=== PATIENT | male | born 1980 | race African-American/Black ===

== ENCOUNTER → 2018-02-18 | Emergency (ER) | payer OTHER ==
[~2018-02-18] VITALS: Ht 182.9 cm; Wt 99.8 kg
[~2018-02-18] MED LIST: OLAN20TA13; PROZAC; QUET50TA; TRAZADONE; UNK HTN MED
[2018-02-18 00:39] VITALS: BP 129/93
== END | disposition left against medical advice (07) ==
LOC: ER 00:37
DX: T38.3X1A Poisoning by insulin and oral hypoglycemic [antidiabetic] drugs, accidental (unintentional), initial encounter (principal); Z53.21 Procedure and treatment not carried out due to patient leaving prior to being seen by health care provider; Y92.89 Other specified places as the place of occurrence of the external cause

== ENCOUNTER 2018-03-11 10:24 | Emergency (ER) | payer MEDICAID ==
[~2018-03-11] VITALS: Ht 182.9 cm; Wt 102.1 kg
[2018-03-11 11:10] LABS: Basophils # (auto) 0 uL; Basophils % (auto) 0.3 % (0.0-2.0); Eosinophils # (auto) 0 uL; Eosinophils % (auto) 0.4 % (0.0-7.0); Hematocrit 44.9 % (41.0-53.0); Hemoglobin 15.4 g/dL (13.5-17.5); Lymphocytes # (auto) 1.3 uL; Lymphocytes % (auto) 23.9 % (10.0-50.0); Mean Corpuscular Hemoglobin 28.3 pg (28.0-32.0); Mean Corpuscular Hgb Conc. 34.2 g/dL (32.0-36.0); Mean Corpuscular Volume 82.7 fL (80.0-100.0); Monocytes # (auto) 0.3 uL; Monocytes % (auto) 6.1 % (0.0-12.0); Neutrophils # (auto) 3.7 uL; Neutrophils % (auto) 69.3 % (37.0-80.0); Nucleated Red Blood Cells % 0.1 %; Platelet Count (auto) 272 10^3/uL (140-450); Red Blood Cells 5.43 10^6/uL (4.5-5.90); Red Cell Distribution Width 14.1 % (11.8-14.3); White Blood Cell 5.4 10^3/uL (4.4-10.8)
[2018-03-11 11:14] LABS: BUN/Creatinine Ratio 5.4; Bilirubin, Total 0.3 mg/dL (0.2-1.0); Calcium 8.8 mg/dL (8.5-10.1); Potassium 3.6 mmol/L (3.5-5.1); Total Protein 8.2 g/dL (6.4-8.2)
[2018-03-11 12:09] LABS: Acetaminophen < 2.0 ug/mL (10-30); Salicylate 5.1 mg/dL (2.8-20.0)
[2018-03-11 16:28] LABS: Amphetamine Screen, Urine NEGATIVE (NEGATIVE); Barbiturate Scree,Urine NEGATIVE (NEGATIVE); Benzodiazephine Screen, Urine NEGATIVE (NEGATIVE); Cannabinoid Screen, Urine POSITIVE (NEGATIVE); Cocaine Screen, Urine NEGATIVE (NEGATIVE); Opiate Scree,Urine NEGATIVE (NEGATIVE); Phencyclidine Screen, Urine NEGATIVE (NEGATIVE)
[2018-03-12 21:44] VITALS: BP 139/102
== END 2018-03-12 22:16 ==
LOC: ER 10:24
DX: R45.851 Suicidal ideations (principal); F12.10 Cannabis abuse, uncomplicated; F17.210 Nicotine dependence, cigarettes, uncomplicated; E11.9 Type 2 diabetes mellitus without complications; E78.5 Hyperlipidemia, unspecified; I10 Essential (primary) hypertension
CPT/HCPCS: 36415; 80053; 80307; 80320; 80329; 85025

== ENCOUNTER → 2018-10-10 | Emergency (ER) | payer MEDICAID ==
[~2018-10-10] VITALS: Ht 182.9 cm; Wt 99.8 kg
[~2018-10-10] MED LIST changes: +ALPRAZolam 0.5 MG TAB PO ONE; +LORazepam 0.5 MG TAB PO ONE; +PARoxetine 20 MG TAB ONE; +TEMAZEPAM 15 MG CAP PO ONE; +ZOLPIDEM TARTRATE 5 MG TAB PO ONE; +diphenhdrAMINE HCL 25 MG CAP PO ONE
[2018-10-10 20:05] LABS: Urine Bacteria NONE SEEN /hpf (None Seen); Urine Blood Negative /uL (Negative); Urine Specific Gravity 1.006 (1.001-1.035); Urine WBC <1 /hpf (0 - 3)
[2018-10-10 20:07] LABS: Basophils # (auto) 0 uL; Basophils % (auto) 0.1 % (0.0-2.0); Eosinophils # (auto) 0 uL; Eosinophils % (auto) 0.1 % (0.0-7.0); Hematocrit 44.1 % (41.0-53.0); Lymphocytes # (auto) 0.5 uL; Lymphocytes % (auto) 9.1 % (10.0-50.0); Mean Corpuscular Hemoglobin 32.4 pg (28.0-32.0); Mean Corpuscular Volume 95.2 fL (80.0-100.0); Monocytes # (auto) 0.4 uL; Monocytes % (auto) 7.2 % (0.0-12.0); Neutrophils # (auto) 4.3 uL; Neutrophils % (auto) 83.5 % (37.0-80.0); Platelet Count (auto) 171 10^3/uL (140-450); Red Blood Cells 4.63 10^6/uL (4.5-5.90); Red Cell Distribution Width 14.9 % (11.8-14.3); White Blood Cell 5.1 10^3/uL (4.4-10.8)
[2018-10-10 20:23] LABS: Albumin 3.9 g/dL (3.4-5.0); Anion Gap 8 (5-15); Blood Alcohol < 3.0 mg/dL (0-5); Blood Urea Nitrogen 6 mg/dL (7-18); Calcium 8.7 mg/dL (8.5-10.1); Carbon Dioxide 26 mmol/L (21-32); Chloride 100 mmol/L (98-107); Glucose 202 mg/dL (74-106); Potassium 3.6 mmol/L (3.5-5.1); Sodium 134 mmol/L (136-145)
[2018-10-10 20:23] LABS: Alcohol, Urine < 3.0 mg/dL (0-5); Amphetamine Screen, Urine NEGATIVE (NEGATIVE); Barbiturate Scree,Urine NEGATIVE (NEGATIVE); Benzodiazephine Screen, Urine NEGATIVE (NEGATIVE); Cannabinoid Screen, Urine POSITIVE (NEGATIVE); Cocaine Screen, Urine NEGATIVE (NEGATIVE); Opiate Scree,Urine NEGATIVE (NEGATIVE); Phencyclidine Screen, Urine NEGATIVE (NEGATIVE)
[2018-10-10 20:27] LABS: Alanine Aminotransferase 91 U/L (16-61); Alkaline Phosphatase 45 U/L (45-117); Aspartate Aminotransferase 144 U/L (15-37); BUN/Creatinine Ratio 5.2; Bilirubin, Total 0.5 mg/dL (0.2-1.0); GFR African American 92 mL/min; GFR Non-African American 76 mL/min; Total Protein 7.8 g/dL (6.4-8.2)
[2018-10-10 20:34] LABS: Acetaminophen < 2.0 ug/mL (10-30)
[2018-10-11] MEDS: LORazepam 0.5 MG TAB PO PRN ×3 (12:05→20:53)
[2018-10-11] MEDS: diphenhdrAMINE HCL 25 MG CAP PO SCH (20:53)
[2018-10-12] MEDS: diphenhdrAMINE HCL 25 MG CAP PO SCH ×2 (12:12→22:17)
[2018-10-12] MEDS: PARoxetine 20 MG TAB PO SCH (12:13)
[2018-10-12] MEDS: LORazepam 0.5 MG TAB PO PRN ×2 (16:28→22:17)
[2018-10-13] MEDS: LORazepam 0.5 MG TAB PO PRN (10:22)
[2018-10-13] MEDS: diphenhdrAMINE HCL 25 MG CAP PO SCH ×2 (10:22→21:20)
[2018-10-13] MEDS: PARoxetine 20 MG TAB PO SCH (13:17)
[2018-10-13] MEDS: metFORMIN HYDROCHLORIDE 500 MG TAB PO SCH (18:25)
[2018-10-14] MEDS: PARoxetine 20 MG TAB PO SCH (10:47)
[2018-10-14] MEDS: diphenhdrAMINE HCL 25 MG CAP PO SCH ×2 (10:47→21:37)
[2018-10-14] MEDS: metFORMIN HYDROCHLORIDE 500 MG TAB PO SCH ×2 (10:47→21:35)
[2018-10-14 19:47] VITALS: BP 132/90
[2018-10-14] MEDS: LORazepam 0.5 MG TAB PO PRN (23:24)
== END | disposition home or self-care (01) ==
LOC: ER 19:06
DX: F25.9 Schizoaffective disorder, unspecified (principal); R45.851 Suicidal ideations; E11.9 Type 2 diabetes mellitus without complications; E78.5 Hyperlipidemia, unspecified; I10 Essential (primary) hypertension; F17.210 Nicotine dependence, cigarettes, uncomplicated; F12.90 Cannabis use, unspecified, uncomplicated
CPT/HCPCS: 36415; 80053; 80307; 80320; 80329; 81001; 82962; 85025

== ENCOUNTER 2018-11-15 19:06 | Emergency (ER) | payer MEDICAID ==
[~2018-11-15] VITALS: Ht 182.9 cm; Wt 99.8 kg
[~2018-11-15 19:06] MED LIST changes: -ALPRAZolam 0.5 MG TAB PO ONE; -LORazepam 0.5 MG TAB PO ONE; -PARoxetine 20 MG TAB ONE; -TEMAZEPAM 15 MG CAP PO ONE; -ZOLPIDEM TARTRATE 5 MG TAB PO ONE; -diphenhdrAMINE HCL 25 MG CAP PO ONE
[2018-11-15 22:23] LABS: Basophils # (auto) 0 uL; Basophils % (auto) 0.2 % (0.0-2.0); Eosinophils # (auto) 0 uL; Eosinophils % (auto) 0.3 % (0.0-7.0); Hematocrit 45.5 % (41.0-53.0); Hemoglobin 15.6 g/dL (13.5-17.5); Lymphocytes # (auto) 2.1 uL; Lymphocytes % (auto) 33.6 % (10.0-50.0); Mean Corpuscular Hemoglobin 32.5 pg (28.0-32.0); Mean Corpuscular Hgb Conc. 34.3 g/dL (32.0-36.0); Mean Corpuscular Volume 94.7 fL (80.0-100.0); Monocytes # (auto) 0.5 uL; Monocytes % (auto) 7.8 % (0.0-12.0); Neutrophils # (auto) 3.7 uL; Neutrophils % (auto) 58.1 % (37.0-80.0); Nucleated Red Blood Cells % 0.1 %; Platelet Count (auto) 229 10^3/uL (140-450); Red Cell Distribution Width 14.8 % (11.8-14.3); White Blood Cell 6.3 10^3/uL (4.4-10.8)
[2018-11-15 22:38] LABS: Albumin 4.3 g/dL (3.4-5.0); BUN/Creatinine Ratio 2.7; Calcium 8.4 mg/dL (8.5-10.1); Potassium 3.9 mmol/L (3.5-5.1)
[2018-11-15 22:40] LABS: Salicylate 4.9 mg/dL (2.8-20.0)
[2018-11-15 22:41] LABS: Bilirubin, Total 0.5 mg/dL (0.2-1.0); Total Protein 8.3 g/dL (6.4-8.2)
[2018-11-15 22:44] LABS: Acetaminophen < 2.0 ug/mL (10-30)
[2018-11-15] MEDS ORDERED: SODIUM CHLORIDE 0.9% 1,000 ML IV ONE (23:00)
[2018-11-15] MEDS ORDERED: MULTIPLE VITAMIN 10 ML, MAGNESIUM SULF SDV 50% 8 MEQ in SODIUM CHLORIDE 0.9% 1,000 ML IV SCH (23:00)
[2018-11-15] MEDS ORDERED: MVI in SODIUM CHLORIDE 0.9% 1,010 ML ONE (23:20)
[2018-11-16 02:02] LABS: Amphetamine Screen, Urine NEGATIVE (NEGATIVE); Barbiturate Scree,Urine POSITIVE (NEGATIVE); Benzodiazephine Screen, Urine NEGATIVE (NEGATIVE); Cannabinoid Screen, Urine POSITIVE (NEGATIVE); Cocaine Screen, Urine NEGATIVE (NEGATIVE); Opiate Scree,Urine NEGATIVE (NEGATIVE); Phencyclidine Screen, Urine NEGATIVE (NEGATIVE)
[2018-11-16 02:11] LABS: Urine Amorphous Crystal FEW /hpf (None Seen); Urine Bacteria FEW /hpf (None Seen); Urine Blood Negative /uL (Negative); Urine Mucus FEW (None Seen); Urine Specific Gravity 1.009 (1.001-1.035); Urine WBC 1 /hpf (0 - 3)
[2018-11-17 06:45] VITALS: BP 142/98
== END 2018-11-17 07:07 | disposition short-term general hospital (02) ==
LOC: ER 19:30
DX: R45.851 Suicidal ideations (principal); F12.90 Cannabis use, unspecified, uncomplicated; F10.129 Alcohol abuse with intoxication, unspecified; E11.9 Type 2 diabetes mellitus without complications; E78.5 Hyperlipidemia, unspecified; I10 Essential (primary) hypertension; F20.9 Schizophrenia, unspecified; F17.210 Nicotine dependence, cigarettes, uncomplicated
CPT/HCPCS: 36415; 80053; 80307; 80320; 80329; 81001; 85025; 96365; 96366; 99285; J3411; J3475

== ENCOUNTER 2018-12-30 06:48 | Emergency (ER) | payer MEDICAID ==
[~2018-12-30] VITALS: Ht 182.9 cm; Wt 99.8 kg
[2018-12-30 07:46] LABS: Basophils # (auto) 0 uL; Basophils % (auto) 0.8 % (0.0-2.0); Eosinophils # (auto) 0 uL; Eosinophils % (auto) 0.2 % (0.0-7.0); Hematocrit 45.8 % (41.0-53.0); Hemoglobin 15.9 g/dL (13.5-17.5); Lymphocytes # (auto) 1.1 uL; Lymphocytes % (auto) 22.1 % (10.0-50.0); Mean Corpuscular Hemoglobin 31.6 pg (28.0-32.0); Mean Corpuscular Hgb Conc. 34.8 g/dL (32.0-36.0); Mean Corpuscular Volume 90.8 fL (80.0-100.0); Monocytes # (auto) 0.3 uL; Monocytes % (auto) 5.1 % (0.0-12.0); Neutrophils # (auto) 3.7 uL; Neutrophils % (auto) 71.8 % (37.0-80.0); Platelet Count (auto) 254 10^3/uL (140-450); Red Blood Cells 5.04 10^6/uL (4.5-5.90); Red Cell Distribution Width 12.9 % (11.8-14.3); White Blood Cell 5.1 10^3/uL (4.4-10.8)
[2018-12-30 07:52] LABS: Urine Bacteria NONE SEEN /hpf (None Seen); Urine Blood Negative /uL (Negative); Urine Specific Gravity 1.015 (1.001-1.035); Urine WBC 1 /hpf (0 - 3)
[2018-12-30 07:58] LABS: BUN/Creatinine Ratio 10.1; Calcium 8.6 mg/dL (8.5-10.1); Potassium 3.4 mmol/L (3.5-5.1)
[2018-12-30 08:00] LABS: Amphetamine Screen, Urine NEGATIVE (NEGATIVE); Barbiturate Scree,Urine NEGATIVE (NEGATIVE); Benzodiazephine Screen, Urine POSITIVE (NEGATIVE); Cannabinoid Screen, Urine POSITIVE (NEGATIVE); Cocaine Screen, Urine NEGATIVE (NEGATIVE); Opiate Scree,Urine NEGATIVE (NEGATIVE); Phencyclidine Screen, Urine NEGATIVE (NEGATIVE)
[2018-12-30 08:01] LABS: Bilirubin, Total 0.4 mg/dL (0.2-1.0)
[2018-12-30 08:04] LABS: Salicylate 6.9 mg/dL (2.8-20.0)
[2018-12-30 08:05] LABS: Acetaminophen < 2.0 ug/mL (10-30)
[2018-12-30 11:14] VITALS: BP 154/99
== END 2018-12-30 11:54 | disposition home or self-care (01) ==
LOC: ER 06:48
DX: F41.9 Anxiety disorder, unspecified (principal); E11.9 Type 2 diabetes mellitus without complications; I10 Essential (primary) hypertension; E78.5 Hyperlipidemia, unspecified; F17.210 Nicotine dependence, cigarettes, uncomplicated; F12.10 Cannabis abuse, uncomplicated
CPT/HCPCS: 36415; 80053; 80307; 80320; 80329; 81001; 85025

== ENCOUNTER 2018-12-31 14:25 | Emergency (ER) | payer MEDICAID ==
[~2018-12-31] VITALS: Ht 182.9 cm; Wt 99.8 kg
[2018-12-31 14:34] VITALS: BP 135/93
== END 2018-12-31 16:17 | disposition home or self-care (01) ==
LOC: ER 14:28
DX: G47.00 Insomnia, unspecified (principal); Z76.0 Encounter for issue of repeat prescription; E11.9 Type 2 diabetes mellitus without complications; E78.00 Pure hypercholesterolemia, unspecified; I10 Essential (primary) hypertension; F17.210 Nicotine dependence, cigarettes, uncomplicated; F12.10 Cannabis abuse, uncomplicated; Z79.899 Other long term (current) drug therapy

== ENCOUNTER 2019-01-30 16:44 | Emergency (ER) | payer MEDICAID ==
[~2019-01-30] VITALS: Ht 182.9 cm; Wt 99.8 kg
[2019-01-30 16:45] VITALS: BP 125/96
[2019-01-30 17:37] LABS: Basophils # (auto) 0 uL; Basophils % (auto) 0.4 % (0.0-2.0); Eosinophils # (auto) 0 uL; Hematocrit 46.6 % (41.0-53.0); Lymphocytes % (auto) 12.4 % (10.0-50.0); Mean Corpuscular Hemoglobin 30.2 pg (28.0-32.0); Mean Corpuscular Hgb Conc. 34.3 g/dL (32.0-36.0); Mean Corpuscular Volume 87.9 fL (80.0-100.0); Monocytes # (auto) 0.6 uL; Monocytes % (auto) 6.7 % (0.0-12.0); Neutrophils # (auto) 6.7 uL; Neutrophils % (auto) 80.5 % (37.0-80.0); Nucleated Red Blood Cells % 0.1 %; Platelet Count (auto) 258 10^3/uL (140-450); Red Blood Cells 5.29 10^6/uL (4.5-5.90); White Blood Cell 8.4 10^3/uL (4.4-10.8)
[2019-01-30 17:49] LABS: Albumin 4.5 g/dL (3.4-5.0); Calcium 9.1 mg/dL (8.5-10.1); Potassium 3.5 mmol/L (3.5-5.1)
[2019-01-30 17:53] LABS: BUN/Creatinine Ratio 3.8; Bilirubin, Total 0.4 mg/dL (0.2-1.0); Total Protein 8.6 g/dL (6.4-8.2)
== END 2019-01-30 23:20 | disposition left against medical advice (07) ==
LOC: EDUNIT# 16:44 → EDBD 16:44 → ER 16:46
DX: F41.9 Anxiety disorder, unspecified (principal); Z53.21 Procedure and treatment not carried out due to patient leaving prior to being seen by health care provider
CPT/HCPCS: 36415; 80053; 85025

== ENCOUNTER 2024-03-28 15:14 | Emergency (ER) | payer MEDICAID ==
[~2024-03-28] VITALS: Ht 182.9 cm; Wt 107.7 kg
[~2024-03-28 15:14] MED LIST changes: +OLAN20TA; -OLAN20TA13
[2024-03-28 16:44] VITALS: BP 121/78; PULSE 119; RESP 18; TEMP 98.5; O2SAT 96
[2024-03-28] MEDS ORDERED: PROM1SOL4 PO (17:00)
[2024-03-28] MEDS ORDERED: PRED20TA2 PO (17:00)
[2024-03-28] MEDS ORDERED: CEPH500C PO (17:00)
== END 2024-03-28 17:15 | disposition home or self-care (01) ==
LOC: ER 15:14
DX: J20.9 Acute bronchitis, unspecified (principal); J03.90 Acute tonsillitis, unspecified; I10 Essential (primary) hypertension; E11.9 Type 2 diabetes mellitus without complications; E78.5 Hyperlipidemia, unspecified; F41.9 Anxiety disorder, unspecified; F20.9 Schizophrenia, unspecified; F17.210 Nicotine dependence, cigarettes, uncomplicated; F15.90 Other stimulant use, unspecified, uncomplicated
CPT/HCPCS: 71046

== ENCOUNTER 2024-04-22 14:40 | Emergency (ER) | payer MEDICAID ==
[~2024-04-22] VITALS: Ht 182.9 cm; Wt 104.0 kg
[~2024-04-22 14:40] MED LIST changes: +CEPH500C PO; +PRED20TA2 PO; +PROM1SOL4 PO
[2024-04-22 15:52] VITALS: BP 151/88; PULSE 107; RESP 17; TEMP 97.9; O2SAT 98
[2024-04-22] MEDS ORDERED: PROM1SOL4 PO (16:05)
[2024-04-22] MEDS ORDERED: AZIT-74 PO (16:05)
[2024-04-22] MEDS ORDERED: PROM2SYP2 PO (16:05)
== END 2024-04-22 16:10 | disposition home or self-care (01) ==
LOC: ER 14:46
DX: J20.9 Acute bronchitis, unspecified (principal); I10 Essential (primary) hypertension; E11.9 Type 2 diabetes mellitus without complications; E78.5 Hyperlipidemia, unspecified; F41.9 Anxiety disorder, unspecified; F20.9 Schizophrenia, unspecified; F17.210 Nicotine dependence, cigarettes, uncomplicated; F15.90 Other stimulant use, unspecified, uncomplicated

== ENCOUNTER 2024-05-02 15:44 | Emergency (ER) | payer MEDICAID ==
[~2024-05-02] VITALS: Ht 182.9 cm; Wt 102.6 kg
[~2024-05-02 15:44] MED LIST changes: +AZIT-74 PO; +PROM2SYP2 PO
[2024-05-02 15:57] VITALS: BP 109/64; PULSE 78; RESP 17; O2SAT 95
== END 2024-05-02 16:21 | disposition left against medical advice (07) ==
LOC: ER 15:44
DX: R05.9 Cough, unspecified (principal); R19.7 Diarrhea, unspecified; Z53.21 Procedure and treatment not carried out due to patient leaving prior to being seen by health care provider

== ENCOUNTER 2024-05-02 17:19 | Emergency (ER) | payer MEDICAID | END 2024-05-02 18:49 | disposition left against medical advice (07) | LOC: ER 17:19 | DX: J02.9 Acute pharyngitis, unspecified (principal); Z53.21 Procedure and treatment not carried out due to patient leaving prior to being seen by health care provider ==

== ENCOUNTER 2024-06-16 07:53 | Emergency (ER) | payer MEDICAID ==
[~2024-06-16] VITALS: Ht 182.9 cm; Wt 105.7 kg
[2024-06-16 08:13] VITALS: BP 136/97; PULSE 106; RESP 18; TEMP 98.6; O2SAT 98
[2024-06-16 10:11] LABS: COVID19 ANTIGEN SOFIA FIA NEGATIVE (NEGATIVE); Rapid Influenza A Negative (Negative); Rapid Influenza B Negative (Negative)
[2024-06-16 11:44] LABS: Urine Bacteria None Seen /hpf (None Seen)
[2024-06-16 11:47] LABS: Urine Blood Negative /uL (Negative); Urine Clarity Clear (Clear); Urine Color Light-Yellow (Yellow); Urine Protein, UAD Negative (Negative); Urine Specific Gravity 1.007 (1.001-1.035); Urine Urobilinogen Normal (Negative); Urine WBC <1 /hpf (0 - 3); Urine pH 5.5 (5.0-9.0)
[2024-06-16] MEDS ORDERED: GUAI-41 PO (11:55)
[2024-06-16] MEDS ORDERED: IBUP-1454 PO (11:55)
[2024-06-16] MEDS ORDERED: AUG875T PO (11:55)
[2024-06-16] MEDS ORDERED: PROM1SOL4 PO (11:55)
== END 2024-06-16 12:04 | disposition home or self-care (01) ==
LOC: ER 07:53
DX: B34.9 Viral infection, unspecified (principal); E11.9 Type 2 diabetes mellitus without complications; E78.5 Hyperlipidemia, unspecified; I10 Essential (primary) hypertension; F17.210 Nicotine dependence, cigarettes, uncomplicated; F12.10 Cannabis abuse, uncomplicated; Z20.822 Contact with and (suspected) exposure to COVID-19
CPT/HCPCS: 36415; 81001; 87426; 87804

== ENCOUNTER 2024-08-28 13:58 | Emergency (ER) | payer MEDICAID ==
[~2024-08-28] VITALS: Ht 182.9 cm; Wt 120.0 kg
[~2024-08-28 13:58] MED LIST changes: +AUG875T PO; +GUAI-41 PO; +IBUP-1454 PO
[2024-08-28] MEDS: MORPHINE SULFATE 4 MG/ML SYR/VIAL IV ONE (14:15)
[2024-08-28] MEDS: ONDANSETRON HCL 4 MG/2 ML VIAL IV ONE (14:15)
--- NOTE | 2024-08-28 14:19 | ED.PDOC ---
History of Present Illness HPI Comments 43 year old male JASS presents to the ED after being DC this morning with a chief complaint of ABD pain. EMS reports that patient was initially seen for FLU like symptoms and was AxO4 along with ABD pain however, upon arrival to ED patient no longer complains about ABD pain but instead now has N/V/D. Patient is slow to respond when questioned and states "he feels sick". EMS reports patients blood glucose read 374 on glucometer and has a BP of 146/104. Patient denies ABD pain, SOB, cough, fever, and chills. Time Seen by MD: 14:06 Primary Care Provider: [facility] Reviewed Notes: Nurses Notes, Fiber Technologist Notes, Medications, Allergies Allergies: Coded Allergies: NO KNOWN ALLERGIES (Unverified , 10/26/10) Home Meds Active Scripts Loperamide Hcl (Imodium) 2 Mg Cp, 2 MG PO Q4HP PRN for 7 Days, #20 CAP Prov:ORACIO LOCKE MD 08/28/24 Ondansetron HCl (Ondansetron Hydrochloride) 8 Mg Tab, 8 MG PO Q6HP PRN for 10 Days, #40 TAB Prov:ORACIO LOCKE MD 08/28/24 Guaifenesin (Guaifenesin) 100 Mg/5 Ml Harper, 100 MG PO TIDP PRN for 10 Days, #150 ML 0 Refills Prov:LYNETTE JIMENEZ NP 06/16/24 Ibuprofen (Ibuprofen) 600 Mg Tab, 1 TAB PO TID for 10 Days, #30 TAB 0 Refills Prov:LYNETTE JIMENEZ NP 06/16/24 Amoxicillin & Pot Clavulanate (AUGMENTIN TABLET) 875 Mg Tb, 875 MG PO BID for 7 Days, #14 TAB 0 Refills Prov:LYNETTE JIMENEZ NP 06/16/24 Promethazine-Dm (Promethazine Dm 6.25-15 mg/5Ml) 1 Harper Harper, 5 ML PO TIDP PRN for 10 Days, #150 ML 0 Refills Prov:LYNETTE JIMENEZ NP 06/16/24 Promethazine-Dm (Promethazine Dm 6.25-15 mg/5Ml) 1 Harper Harper, 5 ML PO TID PRN, #240 ML Prov:NABIL TATE 7/22/24 Azithromycin (Zithromax) 250 Mg Tab, 250 MG PO DAILY, #6 TAB Prov:NABIL TATE MANAGER DIESEL 04/22/24 Promethazine-Dm (Promethazine Dm 6.25-15 mg/5Ml) 1 Harper Harper, 5 ML PO TID, #180 ML Prov:LIZA WARNER 03/28/24 Prednisone (Prednisone) 20 Mg Tab, 60 MG PO DAILY, #15 MG Prov:LIZA WARNER 03/28/24 Cephalexin Monohydrate (Cephalexin) 500 Mg Cap, 1 CAP PO QID, #40 CAP Prov:LIZA WARNER 03/28/24 Reported Medications Promethazine W/Codeine (Promethazine/Codeine) 1 Syp Syp, 1 SYP PO BID PRN, #100 SYP 04/22/24 [Unk Htn Med] No Conflict Check 10/25/10 [Prozac] No Conflict Check, 20 DAILY 10/25/10 Quetiapine Fumerate (Seroquel) 50 Mg Tab, TID 10/25/10 Olanzapine (Zyprexa) 20 Mg Tab, DAILY 10/25/10 [Trazadone] No Conflict Check, 20 MG DAILY 10/25/10 Information Source: Patient, Emergency Med Personnel Mode of Arrival: EMS Severity: Moderate Timing: Hours Duration: Since onset Prehospital treatment: None Past Medical History PAST MEDICAL HISTORY: Anxiety, DM, High Lipids, HTN, Schizophrenia Surgical History: Denies all surgeries Family History Family History: Reviewed,noncontributory to illness Social History Smoker: Cigarettes Alcohol: Occasionally Drugs: Marijuana Lives In: Home, Other (DETENTION) Constitutional: denies: chills, diaphoresis, fatigue, fever, malaise, sweats, weakness, others EENTM: denies: blurred vision, double vision, ear bleeding, ear discharge, ear drainage, ear pain, ear ringing, eye pain, eye redness, hearing loss, mouth pain, mouth swelling, nasal discharge, nose bleeding, nose congestion, nose pain, photophobia, tearing, throat pain, throat swelling, voice changes, others Respiratory: denies: cough, hemoptysis, orthopnea, SOB at rest, shortness of breath, SOB with excertion, stridor, wheezing, others Cardiovascular: denies: chest pain, dizzy spells, diaphoresis, Dyspnea on exertion, edema, irregular heart beat, left arm pain, lightheadedness, palpitations, PND, syncope, others Gastrointestinal: reports: abdominal pain, diarrhea, nausea; denies: abdomen distended, blood streaked bowels, constipated, dysphagia, difficulty swallowing, hematemesis, melena, poor appetite, poor fluid intake, rectal bleeding, rectal pain, vomiting, others Genitourinary: denies: burning, dysuria, flank pain, frequency, hematuria, incontinence, penile discharge, penile sore, pain, testicle pain, testicle swelling, urgency, others Neurological: denies: dizziness, fainting, headache, left sided numbness, left sided weakness, numbness, paresthesia, pre-existing deficit, right sided numbness, right sided weakness, seizure, speech problems, tingling, tremors, weakness, others Musculoskeletal: denies: back pain, gout, joint pain, joint swelling, muscle pain, muscle stiffness, neck pain, others Integumetry: denies: bruises, change in color, change in hair/nails, dryness, laceration, lesions, lumps, rash, wounds, others Allergic/Immunocompromised: denies: Difficulty Healing, Frequent Infections, Hives, Itching, others Hematologic/Lymphatic: denies: anemia, blood clots, easy bleeding, easy bruising, swollen glands, others Endocrine: denies: excessive hunger, excessive sweating, excessive thirst, excessive urination, flushing, intolerance to cold, intolerance to heat, unexplained weight gain, unexplained weight loss, others Psychiatric: denies: anxiety, bipolar disorder, depression, hopeless, panic disorder, schizophrenia, sleepless, suicidal, others All Other Systems: Reviewed and Negative Physical Exam General Appearance: Mild Distress, Normal, Other (FLAT AFFECT) HEENT: Normal ENT Inspection, Pharynx Normal, TMs Normal Neck: Full Range of Motion, Non-Tender, Normal, Normal Inspection Respiratory: Chest Non-Tender, Lungs Clear, No Accessory Muscle Use, No Respiratory Distress, Normal Breath Sounds Cardiovascular: No Edema, No JVD, No Murmur, No Gallop, Normal Peripheral Pulses, Regular Rate/Rhythm Breast Exam: Deferred Gastrointestinal: No Organomegaly, Non Tender, No Pulsatile Mass, Normal Bowel Sounds, Soft Genitalia: Deferred Pelvic: Deferred Rectal: Deferred Extremities: No calf tenderness, Normal capillary refill, Normal inspection, Normal range of motion, Non-tender, No pedal edema Musculoskeletal : Apperance: Normal Neurologic: Alert, 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 Was a procedure done?: No Differential Dx Considerations may include: gastritis, gastroenteritis, dehydration, electrolyte abnormality, bowel obstruction, volvulus and others X-Ray, Labs, Meds, VS Vital Signs Date Time Temp Pulse Resp B/P (MAP) Pulse Ox O2 Delivery O2 Flow Rate FiO2 08/28/24 15:04 87 18 97 Room Air 08/28/24 15:04 87 18 144/94 (111) 98 08/28/24 14:17 99.0 105 18 164/108 (126) 95 146/104 (118) Lab Test 08/28/24 16:05 08/28/24 14:22 Range/Units POC Glucose 200 H 70-106 mg/dl White Blood Count 7.8 4.4-10.8 10^3/uL Red Blood Count 5.40 4.5-5.90 10^6/uL Hemoglobin 16.5 13.5-17.5 g/dL Hematocrit 47.4 41.0-53.0 % Mean Corpuscular Volume 87.8 80.0-100.0 fL Mean Corpuscular Hemoglobin 30.6 28.0-32.0 pg Mean Corpuscular Hemoglobin Concent 34.8 32.0-36.0 g/dL Red Cell Distribution Width 14.7 H 11.8-14.3 % Platelet Count 270 140-450 10^3/uL Mean Platelet Volume 7.4 6.9-10.8 fL Neutrophils (%) (Auto) 75.2 37.0-80.0 % Lymphocytes (%) (Auto) 16.7 10.0-50.0 % Monocytes (%) (Auto) 7.4 0.0-12.0 % Eosinophils (%) (Auto) 0.4 0.0-7.0 % Basophils (%) (Auto) 0.3 0.0-2.0 % Neutrophils # (Auto) 5.8 1.6-8.6 10 ^3/uL Lymphocytes # (Auto) 1.3 0.4-5.4 10 ^3/uL Monocytes # (Auto) 0.6 0-1.3 10 ^3/uL Eosinophils # (Auto) 0 0-0.8 10 ^3/uL Basophils # (Auto) 0 0-0.2 10 ^3/uL Nucleated Red Blood Cells 0.1 % Sodium Level 138 136-145 mmol/L Potassium Level 3.8 3.5-5.1 mmol/L Chloride Level 106 98-107 mmol/L Carbon Dioxide Level 22 20-31 mmol/L Anion Gap 10 5-15 Blood Urea Nitrogen 9 9-23 mg/dL Creatinine 0.97 0.700-1.30 mg/dL Glomerular Filtration Rate Calc 99 >90 mL/min BUN/Creatinine Ratio 9.3 L 10.0-20.0 Serum Glucose 255 H 74-106 mg/dL Calcium Level 10.4 8.7-10.4 mg/dL Total Bilirubin 0.5 0.2-1.0 mg/dL Aspartate Amino Transferase (AST) 18 13-40 U/L Alanine Aminotransferase (ALT) 15 7-40 U/L Alkaline Phosphatase 85 46-116 U/L Total Protein 8.6 H 5.7-8.2 g/dL Albumin 5.4 H 3.2-4.8 g/dL Lipase 45 12-53 U/L Current Medications Medications (Trade) Dose Ordered Sig/Mariela Route Start Time Stop Time Status Last Admin Sodium Chloride 1,000 ml @ 1,000 mls/hr Q1H ONCE IVB 08/28/24 14:15 08/28/24 15:14 DC 08/28/24 14:33 Loperamide HCl (Imodium Capsule) 4 mg ONCE ONCE PO 08/28/24 14:15 08/28/24 14:16 DC 08/28/24 15:07 Time of 1ST Reevaluation: 15:06 Reevaluation 1ST: Unchanged Time of 2ND Reevaluation: 16:00 Reevaluation 2ND: Improved Patient Education/Counseling: Diagnosis, Treatment Family Education/Counseling: No Family Present Departure 1 Departure Time of Disposition: 16:00 Impression: Primary Impression: Nausea vomiting and diarrhea Disposition: 01 HOME / SELF CARE / HOMELESS Condition: Stable e-Prescriptions Loperamide Hcl (Imodium) 2 Mg Cp 2 MG PO Q4HP PRN for 7 Days, #20 CAP Prov: ORACIO LOCKE MD 08/28/24 Ondansetron HCl (Ondansetron Hydrochloride) 8 Mg Tab 8 MG PO Q6HP PRN for 10 Days, #40 TAB Prov: ORACIO LOCKE MD 08/28/24 Discharged With: Self Critical Care Note Critical Care Time?: No Stability Stability form required: No Heart Score Heart Score: Heart Score Response (Comments) Value History N/A 0 EKG N/A 0 Age N/A 0 Risk Factors N/A 0 Troponin N/A 0 Total 0 I personally scribed for ORACIO LOCKE MD ([email or web address]) on 08/28/24 at 14:19. Electronically submitted by Penny Larios [email or web address]). ORACIO LOCKE MD Aug 28, 2024 14:19
[2024-08-28] MEDS: SODIUM CHLORIDE 0.9% 1,000 ML IVB ONE (14:33)
[2024-08-28 14:36] LABS: Basophils # (auto) 0 10 ^3/uL (0-0.2); Basophils % (auto) 0.3 % (0.0-2.0); Eosinophils # (auto) 0 10 ^3/uL (0-0.8); Eosinophils % (auto) 0.4 % (0.0-7.0); Hematocrit 47.4 % (41.0-53.0); Hemoglobin 16.5 g/dL (13.5-17.5); Lymphocytes # (auto) 1.3 10 ^3/uL (0.4-5.4); Lymphocytes % (auto) 16.7 % (10.0-50.0); Mean Corpuscular Hemoglobin 30.6 pg (28.0-32.0); Mean Corpuscular Hgb Conc. 34.8 g/dL (32.0-36.0); Mean Corpuscular Volume 87.8 fL (80.0-100.0); Monocytes # (auto) 0.6 10 ^3/uL (0-1.3); Monocytes % (auto) 7.4 % (0.0-12.0); Neutrophils # (auto) 5.8 10 ^3/uL (1.6-8.6); Neutrophils % (auto) 75.2 % (37.0-80.0); Nucleated Red Blood Cells % 0.1 %; Platelet Count (auto) 270 10^3/uL (140-450); Red Cell Distribution Width 14.7 % (11.8-14.3); White Blood Cell 7.8 10^3/uL (4.4-10.8)
[2024-08-28 14:52] LABS: Alanine Aminotransferase 15 U/L (7-40); Alkaline Phosphatase 85 U/L (46-116); Anion Gap 10 (5-15); Aspartate Aminotransferase 18 U/L (13-40); BUN/Creatinine Ratio 9.3 (10.0-20.0); Bilirubin, Total 0.5 mg/dL (0.2-1.0); Carbon Dioxide 22 mmol/L (20-31); Chloride 106 mmol/L (98-107); Lipase 45 U/L (12-53); Potassium 3.8 mmol/L (3.5-5.1); Sodium 138 mmol/L (136-145)
[2024-08-28 14:54] LABS: Albumin 5.4 g/dL (3.2-4.8); Blood Urea Nitrogen 9 mg/dL (9-23); Calcium 10.4 mg/dL (8.7-10.4); Glucose 255 mg/dL (74-106); Total Protein 8.6 g/dL (5.7-8.2)
[2024-08-28] MEDS ORDERED: ONDA-180 PO (15:05)
[2024-08-28] MEDS ORDERED: LOPE2CAP16 PO (15:05)
[2024-08-28] MEDS: LOPERAMIDE HCL 2 MG CAP/TAB PO ONE (15:07)
[2024-08-28 20:57] VITALS: BP 147/94; PULSE 75; RESP 14; TEMP 98.1; O2SAT 96
== END 2024-08-29 02:05 | disposition home or self-care (01) ==
LOC: ER 13:58 → EDUNIT# 13:58 → EDBD 13:58 → ER 08-29 02:05
DX: R11.2 Nausea with vomiting, unspecified (principal); R19.7 Diarrhea, unspecified; R10.9 Unspecified abdominal pain; I10 Essential (primary) hypertension; E11.9 Type 2 diabetes mellitus without complications; F17.210 Nicotine dependence, cigarettes, uncomplicated; F20.9 Schizophrenia, unspecified; F41.9 Anxiety disorder, unspecified
CPT/HCPCS: 36415; 80053; 82962; 83690; 85025; 96360; 96361; 99283; J7030

== ENCOUNTER 2024-12-10 13:58 | Emergency (ER) | payer MEDICAID ==
[~2024-12-10] VITALS: Ht 182.9 cm; Wt 100.2 kg
[~2024-12-10 13:58] MED LIST changes: +LOPE2CAP16 PO; +ONDA-180 PO
[2024-12-10] MEDS ORDERED: IBUP-1455 PO (16:48)
[2024-12-10] MEDS ORDERED: AUG875T PO (16:48)
--- NOTE | 2024-12-10 16:48 | ED.PDOC ---
History of Present Illness HPI Comments Patient complaining of a bite to his left medial thigh which happened yesterday. States he has been by laboratory. States the area is painful to the touch. Nothing makes it better, touching the area makes it worse. No fever no chills. Chief Complaint: Animal Bite Time Seen by MD: 15:56 Primary Care Provider: ? Reviewed Notes: Nurses Notes Allergies: Coded Allergies: NO KNOWN ALLERGIES (Unverified , 10/26/10) Home Meds Active Scripts Loperamide Hcl (Imodium) 2 Mg Cp, 2 MG PO Q4HP PRN for 7 Days, #20 CAP Prov:ORACIO LOCKE MD 08/28/24 Ondansetron HCl (Ondansetron Hydrochloride) 8 Mg Tab, 8 MG PO Q6HP PRN for 10 Days, #40 TAB Prov:ORACIO LOCKE MD 08/28/24 Guaifenesin (Guaifenesin) 100 Mg/5 Ml Harper, 100 MG PO TIDP PRN for 10 Days, #150 ML 0 Refills Prov:LYNETTE JIMENEZ NP 06/16/24 Ibuprofen (Ibuprofen) 600 Mg Tab, 1 TAB PO TID for 10 Days, #30 TAB 0 Refills Prov:LYNETTE JIMENEZ NP 06/16/24 Amoxicillin & Pot Clavulanate (AUGMENTIN TABLET) 875 Mg Tb, 875 MG PO BID for 7 Days, #14 TAB 0 Refills Prov:LYNETTE JIMENEZ NP 06/16/24 Promethazine-Dm (Promethazine Dm 6.25-15 mg/5Ml) 1 Harper Harper, 5 ML PO TIDP PRN for 10 Days, #150 ML 0 Refills Prov:LYNETTE JIMENEZ NP 06/16/24 Promethazine-Dm (Promethazine Dm 6.25-15 mg/5Ml) 1 Harper Harper, 5 ML PO TID PRN, #240 ML Prov:NABIL TATE 04/22/24 Azithromycin (Zithromax) 250 Mg Tab, 250 MG PO DAILY, #6 TAB Prov:NABIL TATE 04/22/24 Promethazine-Dm (Promethazine Dm 6.25-15 mg/5Ml) 1 Harper Harper, 5 ML PO TID, #180 ML Prov:LIZA WARNER 03/28/24 Prednisone (Prednisone) 20 Mg Tab, 60 MG PO DAILY, #15 MG Prov:LIZA WARNER MAURI 03/28/24 Cephalexin Monohydrate (Cephalexin) 500 Mg Cap, 1 CAP PO QID, #40 CAP Prov:LIZA WARNER MAURI 03/28/24 Reported Medications Promethazine W/Codeine (Promethazine/Codeine) 1 Syp Syp, 1 SYP PO BID PRN, #100 SYP 04/22/24 [Unk Htn Med] No Conflict Check 10/25/10 [Prozac] No Conflict Check, 20 DAILY 10/25/10 Quetiapine Fumerate (Seroquel) 50 Mg Tab, TID 10/25/10 Olanzapine (Zyprexa) 20 Mg Tab, DAILY 10/25/10 [Trazadone] No Conflict Check, 20 MG DAILY 10/25/10 Information Source: Patient Mode of Arrival: Ambulatory Past Medical History PAST MEDICAL HISTORY: Anxiety, DM, High Lipids, HTN, Schizophrenia Surgical History: Denies all surgeries Family History Family History: Reviewed,noncontributory to illness Social History Smoker: Cigarettes Alcohol: Occasionally Drugs: Marijuana Lives In: Home, Other Constitutional: denies: chills, diaphoresis, fatigue, fever, malaise, sweats, weakness, others EENTM: denies: blurred vision, double vision, ear bleeding, ear discharge, ear drainage, ear pain, ear ringing, eye pain, eye redness, hearing loss, mouth pain, mouth swelling, nasal discharge, nose bleeding, nose congestion, nose pain, photophobia, tearing, throat pain, throat swelling, voice changes, others Respiratory: denies: cough, hemoptysis, orthopnea, SOB at rest, shortness of breath, SOB with excertion, stridor, wheezing, others Cardiovascular: denies: chest pain, dizzy spells, diaphoresis, Dyspnea on exertion, edema, irregular heart beat, left arm pain, lightheadedness, palpitations, PND, syncope, others Gastrointestinal: denies: abdomen distended, abdominal pain, blood streaked bowels, constipated, diarrhea, dysphagia, difficulty swallowing, hematemesis, melena, nausea, poor appetite, poor fluid intake, rectal bleeding, rectal pain, vomiting, others Genitourinary: denies: burning, dysuria, flank pain, frequency, hematuria, incontinence, penile discharge, penile sore, pain, testicle pain, testicle swelling, urgency, others Neurological: denies: dizziness, fainting, headache, left sided numbness, left sided weakness, numbness, paresthesia, pre-existing deficit, right sided numbness, right sided weakness, seizure, speech problems, tingling, tremors, weakness, others Musculoskeletal: denies: back pain, gout, joint pain, joint swelling, muscle pain, muscle stiffness, neck pain, others Integumetry: reports: wounds; denies: bruises, change in color, change in hair/nails, dryness, laceration, lesions, lumps, rash, others Allergic/Immunocompromised: denies: Difficulty Healing, Frequent Infections, Hives, Itching, others Hematologic/Lymphatic: denies: anemia, blood clots, easy bleeding, easy bruising, swollen glands, others Endocrine: denies: excessive hunger, excessive sweating, excessive thirst, excessive urination, flushing, intolerance to cold, intolerance to heat, unexplained weight gain, unexplained weight loss, others Psychiatric: denies: anxiety, bipolar disorder, depression, hopeless, panic disorder, schizophrenia, sleepless, suicidal, others Physical Exam General Appearance: No Apparent Distress, Normal HEENT: Normal ENT Inspection, Pharynx Normal, TMs Normal Neck: Full Range of Motion, Non-Tender, Normal, Normal Inspection Respiratory: Chest Non-Tender, Lungs Clear, No Accessory Muscle Use, No Respiratory Distress, Normal Breath Sounds Cardiovascular: No Edema, No JVD, No Murmur, No Gallop, Normal Peripheral Pulses, Regular Rate/Rhythm Breast Exam: Deferred Gastrointestinal: No Organomegaly, Non Tender, No Pulsatile Mass, Normal Bowel Sounds, Soft Genitalia: Deferred Pelvic: Deferred Rectal: Deferred Extremities: No calf tenderness, Normal capillary refill, Normal inspection, Normal range of motion, Non-tender, No pedal edema Musculoskeletal : Apperance: Normal Neurologic: Alert, 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 Areas warm to the touch. No discharge.) Lymphatic: No Adenopathy Was a procedure done? Was a procedure done?: No Differential Dx Considerations may include: Animal bite, cellulitis X-Ray, Labs, Meds, VS Vital Signs Date Time Temp Pulse Resp B/P (MAP) Pulse Ox O2 Delivery O2 Flow Rate FiO2 12/10/24 14:24 97.6 107 22 139/85 (103) 97 X-Ray, Labs, Meds, VS Comment Imaging: X-rays and CT scans were reviewed and interpreted by this provider, imaging shows no fractures and no pathological disease. Pending radiology review. Laboratory: Labs reviewed and interpreted by this provider. No significant abnormalities noted. Patient has prior medical visits reviewed. Med reconciliation performed Vital signs reviewed Time of 1ST Reevaluation: 16:48 Reevaluation 1ST: Improved Patient Education/Counseling: Diagnosis, Treatment, Need For Follow Up (Patient advised to follow-up in the emergency room in the next 24 to 48 hours if symptoms do not improve. Advised follow-up with PCP in the next 3 to 5 days. Patient verbalized understanding. ) Family Education/Counseling: Diagnosis, Treatment Departure 1 Departure Time of Disposition: 16:44 Impression: Primary Impression: Animal bite Disposition: 01 HOME / SELF CARE / HOMELESS Condition: Fair e-Prescriptions Ibuprofen Micronized (Ibuprofen) 800 Mg Tab 800 MG PO TID PRN, #40 TAB Prov: NABIL TATE 12/10/24 Amoxicillin & Pot Clavulanate (AUGMENTIN TABLET) 875 Mg Tb 875 MG PO BID for 7 Days, #14 TAB Prov: NABIL TATE 12/10/24 Discharged With: Self Critical Care Note Critical Care Time?: No Stability Stability form required: No Heart Score Heart Score: Heart Score Response (Comments) Value History N/A 0 EKG N/A 0 Age N/A 0 Risk Factors N/A 0 Troponin N/A 0 Total 0 NABIL TATE Dec 10, 2024 16:48
[2024-12-10 18:22] VITALS: BP 133/100; PULSE 111; RESP 18; TEMP 97.6; O2SAT 97
== END 2024-12-10 18:29 | disposition home or self-care (01) ==
LOC: ER 13:58
DX: S71.132A Puncture wound without foreign body, left thigh, initial encounter (principal); S70.312A Abrasion, left thigh, initial encounter; I10 Essential (primary) hypertension; E11.9 Type 2 diabetes mellitus without complications; F41.9 Anxiety disorder, unspecified; F20.9 Schizophrenia, unspecified; F17.210 Nicotine dependence, cigarettes, uncomplicated; W64.XXXA Exposure to other animate mechanical forces, initial encounter; Y93.89 Activity, other specified; Y92.89 Other specified places as the place of occurrence of the external cause; Y99.8 Other external cause status